=== PATIENT | female | born 1960 | race Caucasian/White ===

== ENCOUNTER 2017-05-06 06:44 | Emergency (ER) | payer BC ==
[~2017-05-06] VITALS: Ht 170.2 cm; Wt 65.6 kg
[~2017-05-06 06:44] MED LIST: BENA25TA5 PO; MEDR4PAK3 PO
[2017-05-06 06:48] VITALS: BP 145/85; PULSE 81; RESP 18; TEMP 98; O2SAT 98
[2017-05-06] MEDS ORDERED: DEXAMETHASONE SOD PHOS 20 MG/5 ML VIAL IM ONE (07:00)
[2017-05-06] MEDS ORDERED: HYDR50TA94 PO (07:06)
--- NOTE | 2017-05-06 07:07 | PD ---
HPI . Pruritic rash Chief Complaint: Rash Time Seen by Provider: 06:57 Travel History International Travel<30 days: No Contact w/Intl Traveler<30days: No History of Present Illness HPI Patient presents with a 3 day history of rash. This started after cutting grass 2 days ago. She states that the itching is "really bad." She reports no relief of her itching with Benadryl cream and Benadryl by mouth. She reports that she has noticed that it is worse with heat. PFSH Past Medical History Cancer: No Cardiovascular Problems: No Diabetes: No Diminished Hearing: No Endocrine: No Gastrointestinal Disorders: No Genitourinary: No Hepatitis: No Hiatal Hernia: No Hypertension: Yes Immune Disorder: No Musculoskeletal: Yes (L KNEE MENISCUS TEAR) Neurologic: No Psychiatric: No Reproductive: No Respiratory: No Immunizations Current: Yes Thyroid Disease: No Past Surgical History Abdominal Surgery: No AICD: No Cardiac Surgery: No Ear Surgery: No Endocrine Surgery: No Eye Surgery: No Genitourinary Surgery: No Gynecologic Surgery: Yes (HYSTERECTOMY 1997) Hysterectomy: Yes Joint Replacement: No Neurologic Surgery: No Oral Surgery: No Pacemaker: No Thoracic Surgery: No Tonsillectomy: Yes Other Surgery: Yes (opherectomy) Social History Alcohol Use: Yes (OCC) Tobacco Use: No Substance Use: No Allergies-Medications (Allergen,Severity, Reaction): Coded Allergies: Codeine (Unverified Allergy, Intermediate, RASH, UPSET STOMACH, 05/06/17) Betadine (Verified Allergy, Mild, 05/06/17) THROAT CLOSES, SWELLING Flexeril (Verified Allergy, Mild, HIVES, 05/06/17) Augmentin (Unverified Adverse Reaction, Unknown, SEVERE YEAST INFECTION, ) Uncoded Allergies: sun (Allergy, Unknown, 04/08/16) Reported Meds & Prescriptions Reported Meds & Active Scripts Active No Active Prescriptions or Reported Medications Review of Systems Except as stated in HPI: all other systems reviewed are Neg General / Constitutional: No: Fever, Chills Cardiovascular: No: Chest Pain or Discomfort Respiratory: No: Shortness of Breath Gastrointestinal: No: Nausea, Vomiting Skin: Positive Rash, Positive Itching Physical Exam Narrative GENERAL: Awake and alert and in no acute distress. SKIN: Warm and dry. She has a diffuse maculopapular rash in patches. HEAD: Atraumatic. Normocephalic. EYES: Pupils equal and round. NECK: Trachea midline. CARDIOVASCULAR: Regular rate and rhythm. RESPIRATORY: No accessory muscle use. MUSCULOSKELETAL: No obvious deformities. No edema. NEUROLOGICAL: Awake and alert. No obvious cranial nerve deficits. Motor grossly within normal limits. Normal speech. PSYCHIATRIC: Appropriate mood and affect; insight and judgment normal. Data Data Last Documented VS Vital Signs Date Time Temp Pulse Resp B/P Pulse Ox O2 Delivery O2 Flow Rate FiO2 05/06/17 06:48 98.0 81 18 145/85 98 Orders Dexamethasone Inj (Decadron Inj) (05/06/17 07:00) [facility] Medical Decision Making Medical Screen Exam Complete: Yes Emergency Medical Condition: Yes Differential Diagnosis The differential diagnosis of the skin rash includes but is not limited to allergic urticaria, scabies, insect bites, contact dermatitis Narrative Course Patient presents for treatment of rash. It looks like an urticarial rash. I will give her a Decadron shot and then discharge her on Vistaril. She has been instructed to avoid heat. Cool compresses as needed for symptomatic relief. Diagnosis Primary Impression: Urticaria Patient Instructions: Urticaria (ED) Additional Instructions: Avoid heat. Cool compresses will provide symptomatic relief. Med/Other Pt SpecificInfo: Prescription(s) given Scripts Hydroxyzine HCl 50 Mg Tab50 Mg PO QID PRN (itching) #30 TAB Ref 0 Prov:Grace Hernandez MD 05/06/17 Disposition: 01 DISCHARGE HOME Condition: Stable Grace Hernandez MD May 06, 2017 07:07
== END 2017-05-06 07:10 | disposition home or self-care (01) ==
LOC: PHED 06:44
DX: L50.9 Urticaria, unspecified (principal); L29.9 Pruritus, unspecified; I10 Essential (primary) hypertension; Z87.39 Personal history of other diseases of the musculoskeletal system and connective tissue
CPT/HCPCS: 96372; 99284; J1100

== ENCOUNTER 2017-08-21 20:53 | Emergency (ER) | payer BC ==
[~2017-08-21 20:53] MED LIST changes: -BENA25TA5 PO; +HYDR50TA94 PO; -MEDR4PAK3 PO
[2017-08-21 20:59] VITALS: BP 195/97; PULSE 78; RESP 18; TEMP 98; O2SAT 99
[2017-08-21] MEDS ORDERED: LEVO50TA4 PO (21:07)
[2017-08-21] MEDS ORDERED: methylPREDNISolone SOD SUCC 125 MG/2 ML VIAL IM ONE (21:15)
[2017-08-21] MEDS ORDERED: diphenhydrAMINE HCL 50 MG/ML VIAL IM ONE (21:15)
--- NOTE | 2017-08-21 21:19 | PD ---
HPI Chief Complaint: Skin Problem Time Seen by Provider: 21:12 Travel History International Travel<30 days: No Contact w/Intl Traveler<30days: No Traveled to known affect area: No History of Present Illness HPI 57-year-old female patient presents to the ER today, states that she was cleaning up the garage when she started feeling pain on her right elbow area at around 5 PM. She did not feel sudden pain. It happened gradually and there is swelling on the right elbow. She did not see any insects, thought that maybe she had a spider bite. She denies any fevers, throat swelling, shortness of breath, or any other symptoms. Modifying Factors: None Associated Signs & Symptoms: Right elbow pain, swelling Risk Factors: None PFSH Past Medical History Cancer: No Cardiovascular Problems: No Diabetes: No Diminished Hearing: No Endocrine: No Gastrointestinal Disorders: No Genitourinary: No Hepatitis: No Hiatal Hernia: No Hypertension: Yes Immune Disorder: No Musculoskeletal: Yes (L KNEE MENISCUS TEAR) Neurologic: No Psychiatric: No Reproductive: No Respiratory: No Immunizations Current: Yes Thyroid Disease: No Menopausal: Yes Past Surgical History Abdominal Surgery: No AICD: No Cardiac Surgery: No Ear Surgery: No Endocrine Surgery: No Eye Surgery: No Genitourinary Surgery: No Gynecologic Surgery: Yes (HYSTERECTOMY 1997) Hysterectomy: Yes Joint Replacement: No Neurologic Surgery: No Oral Surgery: No Pacemaker: No Thoracic Surgery: No Tonsillectomy: Yes Other Surgery: Yes (opherectomy) Social History Alcohol Use: Yes (Occ.) Tobacco Use: No Substance Use: No Allergies-Medications (Allergen,Severity, Reaction): Coded Allergies: codeine (Unverified Allergy, Intermediate, RASH, UPSET STOMACH, 08/21/17) cyclobenzaprine (Unverified Allergy, Mild, HIVES, 08/21/17) povidone-iodine (Unverified Allergy, Mild, 08/21/17) THROAT CLOSES, SWELLING amoxicillin (Unverified Adverse Reaction, Unknown, SEVERE YEAST INFECTION , 08/21/17) clavulanic acid (Unverified Adverse Reaction, Unknown, SEVERE YEAST INFECTION, 08/21/17) Uncoded Allergies: sun (Allergy, Unknown, 04/08/16) Reported Meds & Prescriptions Reported Meds & Active Scripts Active Reported Levothyroxine (Levothyroxine Sodium) 50 Mcg Tab 50 Mcg PO DAILY Review of Systems Except as stated in HPI: all other systems reviewed are Neg Physical Exam Narrative GENERAL: Well-developed middle age white female patient currently in mild distress. Awake and oriented 3. SKIN: Focused skin assessment warm/dry. HEAD: Atraumatic. Normocephalic. EYES: Pupils equal and round. No scleral icterus. No injection or drainage. ENT: No nasal bleeding or discharge. Mucous membranes pink and moist. NECK: Trachea midline. No JVD. CARDIOVASCULAR: Regular rate and rhythm. No murmur appreciated. RESPIRATORY: No accessory muscle use. Clear to auscultation. Breath sounds equal bilaterally. GASTROINTESTINAL: Abdomen soft, non-tender, nondistended. Hepatic and splenic margins not palpable. MUSCULOSKELETAL: No obvious deformities. No clubbing. No cyanosis. No edema. Right arm: There is notable posterior elbow area edema and erythema at the area of the olecranon bursa. It is tender to palpation. I do not palpate any obvious fluctuance. She has small areas of excoriation on the area. I do not see any obvious well defined area of puncture wound or insect bite. NEUROLOGICAL: Awake and alert. No obvious cranial nerve deficits. Motor grossly within normal limits. Normal speech. PSYCHIATRIC: Appropriate mood and affect; insight and judgment normal. Data Data Last Documented VS Vital Signs Date Time Temp Pulse Resp B/P (MAP) Pulse Ox O2 Delivery O2 Flow Rate FiO2 08/21/17 21:52 162/92 (115) 08/21/17 20:59 98.0 78 18 99 Orders Orders Methylprednisolone So Succ Inj (Solumedr (08/21/17 21:15) Diphenhydramine Inj (Benadryl Inj) (08/21/17 21:15) MDM Medical Decision Making Medical Screen Exam Complete: Yes Emergency Medical Condition: Yes Medical Record Reviewed: Yes Differential Diagnosis Chemical irritation versus allergic reaction versus cellulitis versus insect bite/sting Narrative Course Patient had been asked to clean the area in order to remove any possible chemical irritant or thinks that she may be allergic to. She was given Solu- Medrol and Benadryl in the ER. On reevaluation about an hour later, her pain is still going on but the redness and swelling has improved. At this point, the course of symptoms is unlikely to be cellulitis related. However, she has several abrasions and considering the condition she was working with, my plan would be to place her on antibiotic by mouth as the proximal chin. We will also have her stay on some steroids and Benadryl to help with the swelling. Follow-up with primary care physician. Return for any worsening in symptoms as needed. The plan has been discussed with her and she states understanding. Diagnosis Primary Impression: Allergic reaction to chemical substance Med/Other Pt SpecificInfo: Prescription(s) given Scripts Doxycycline Hyclate (Doxycycline Hyclate) 100 Mg Cap 100 MG PO BID for Infection for 7 Days, #14 CAP 0 Refills Prov: Lora James MD 08/21/17 Diphenhydramine HCl (Benadryl Allergy) 25 Mg Cap 25 MG PO QID Y for ALLERGIES, #20 Prov: Lora James MD 08/21/17 Methylprednisolone Dosepak (Medrol Dosepak) 4 Mg Dspk 4 MG PO DIRECTED, #1 DSPK 0 Refills Per Pharmacist direction Prov: Lora James MD 08/21/17 Disposition: 01 DISCHARGE HOME Condition: Stable Lora James MD Aug 21, 2017 21:19
[2017-08-21 21:52] VITALS: BP 162/92
[2017-08-21 22:07] VITALS: BP 171/88
[2017-08-21] MEDS ORDERED: BENA25CA4 PO (22:07)
[2017-08-21] MEDS ORDERED: MEDR4PAK PO (22:07)
[2017-08-21] MEDS ORDERED: DOXY100C PO (22:07)
== END 2017-08-21 22:17 | disposition home or self-care (01) ==
LOC: PHED 20:53
DX: T78.49XA Other allergy, initial encounter (principal); M25.521 Pain in right elbow; R22.31 Localized swelling, mass and lump, right upper limb; I10 Essential (primary) hypertension; Z87.39 Personal history of other diseases of the musculoskeletal system and connective tissue; X58.XXXA Exposure to other specified factors, initial encounter
CPT/HCPCS: 96372; 99284; J1200; J2930